=== PATIENT | female | born 1970 | race Two or more races ===

== ENCOUNTER 2018-08-11 14:26 | Inpatient (IN) | payer OTHER ==
[~2018-08-11] VITALS: Ht 149.9 cm; Wt 66.7 kg
[2018-08-24] MEDS ORDERED: SINGULAIR10 MG PO (18:05)
[2018-08-24] MEDS ORDERED: CLARITIN10 MG PO (18:05)
[2018-08-24] MEDS ORDERED: PROTONIX40 MG PO (18:06)
[2018-08-29] MEDS ORDERED: INTEGRA F CAPS1 EACH PO (11:21)
[2018-08-29] MEDS ORDERED: PERCOCET 5-3251 EACH PO (11:21)
[2018-08-29] MEDS ORDERED: INTESTINEX680 M1 PO (11:21)
[2018-08-29] MEDS ORDERED: OMEPRAZOLE20 MG PO (11:21)
== END 2018-08-29 13:39 | disposition home or self-care (01) | DRG 330 ==
LOC: SURG 08-26 06:40 → O/R 08-26 06:40 → RECOVERY 08-26 09:00 → SURG 08-26 15:59 → SURH 08-27 17:32
PROVIDERS: Surgery
PROC: 07TC4ZZ Resection of Pelvis Lymphatic, Percutaneous Endoscopic Approach (ICD-10-PCS; 2018-08-26)
PROC: 0DTN4ZZ Resection of Sigmoid Colon, Percutaneous Endoscopic Approach (ICD-10-PCS; principal; 2018-08-26 09:00)
DX: C19 Malignant neoplasm of rectosigmoid junction (principal); D62 Acute posthemorrhagic anemia

== ENCOUNTER 2018-08-12 10:12 | Outpatient (CLI) | payer OTHER | END 2018-08-12 10:25 | disposition home or self-care (01) | LOC: RAD 501 10:12 | DX: C19 Malignant neoplasm of rectosigmoid junction (principal) ==

== ENCOUNTER 2018-08-18 08:40 | Outpatient (CLI) | payer OTHER | END 2018-08-18 08:55 | disposition home or self-care (01) | LOC: TOM 08:40 | DX: C19 Malignant neoplasm of rectosigmoid junction (principal) ==

== ENCOUNTER 2018-10-07 06:16 | Day surgery (SDC) | payer OTHER ==
[~2018-10-07 06:16] MED LIST: CLARITIN10 MG PO; INTEGRA F CAPS1 EACH PO; INTESTINEX680 M1 PO; OMEPRAZOLE20 MG PO; PERCOCET 5-3251 EACH PO; PROTONIX40 MG PO; SINGULAIR10 MG PO
[2018-10-07] MEDS ORDERED: ULTRACET PO (08:43)
== END 2018-10-07 10:25 | disposition home or self-care (01) ==
LOC: CIR.AMB 06:16
DX: C19 Malignant neoplasm of rectosigmoid junction (principal)
CPT/HCPCS: 36561; C1751

== ENCOUNTER 2019-10-20 06:15 | Day surgery (SDC) | payer OTHER ==
[~2019-10-20 06:15] MED LIST changes: +ULTRACET PO
== END 2019-10-20 13:10 | disposition home or self-care (01) ==
LOC: AMB-ENDOS 06:15 → ADM 13:15 → AMB-ENDOS 13:15
DX: K57.30 Diverticulosis of large intestine without perforation or abscess without bleeding (principal); Z85.038 Personal history of other malignant neoplasm of large intestine; K44.9 Diaphragmatic hernia without obstruction or gangrene

== ENCOUNTER 2021-05-30 06:42 | Day surgery (SDC) | payer OTHER ==
[~2021-05-30 06:42] MED LIST changes: +PROAIR HFA8.5 GM IH
[2021-05-30] MEDS ORDERED: ULTRAM50 MG PO (09:02)
== END 2021-05-30 10:50 | disposition home or self-care (01) ==
LOC: CIR.AMB 06:42
PROVIDERS: ATTEND Surgery
DX: C18.8 Malignant neoplasm of overlapping sites of colon (principal); Z20.822 Contact with and (suspected) exposure to COVID-19